=== PATIENT | female | born 1950 | race Caucasian/White ===

== ENCOUNTER 2023-03-29 09:42 | Day surgery (SDC) | payer MEDICARE ==
--- NOTE | 2023-03-29 08:27 | HP ---
DATE OF SURGERY: 03/29/2023 HISTORY OF PRESENT ILLNESS: The patient is a 72-year-old with last colonoscopy 2007 and had polyps. No bloody stools. No change in bowel habits recently. No new pain. Family history of brother with colon cancer. PAST MEDICAL HISTORY: Glaucoma. Osteoporosis. Vitamin D deficient. Arthritis. She had some rhinitis in the past. PAST SURGICAL HISTORY: Tubal. Arthroplasty bilaterally in the past. Colonoscopy. MEDICATIONS: Vitamin D3, biotin, Latanoprost eye drops, multivitamins, timolol eye drops, Zyrtec. ALLERGIES: NKDA. FAMILY HISTORY: Diabetes, hypertension, glaucoma, lung cancer, colon cancer. SOCIAL HISTORY: Former smoker. Occasional alcohol use. REVIEW OF SYSTEMS: Twelve systems reviewed. No chest pain or palpitations. Other systems negative or noncontributory as above and per preadmission questionnaire. PHYSICAL EXAMINATION: Height 5'4". BMI 25.4. GENERAL: No acute distress. HEENT: Sclerae nonicteric. EOMI. Oral mucous membranes moist. NECK: No JVD. CHEST: Equal excursion, nonlabored breathing. CVS: Regular rate and rhythm. ABDOMEN: Soft. EXTREMITIES: No significant edema. NEURO: Alert, oriented, moving extremities symmetrically. RECTAL: Deferred timed to endoscopy exam. PSYCH: Appropriate mood and affect. SKIN: Dry. IMPRESSION: History of polyps, family history of colon cancer. She is in need of follow up screening colonoscopy. She was shown the risk sheet, explained the procedure in detail including but not limited to risk of bleeding or infection, risk of bowel injury or perforation, risk of missed or nondiagnosis or incomplete exam possibly requiring barium enema, other studies or procedures or referrals, risk of anesthesia or sedation, risk of bowel prep but not limited to. Will proceed with colonoscopy under MAC anesthesia as an outpatient. Otherwise continue medication for her glaucoma, vitamin D deficiency and arthritis.
[2023-03-29 10:23] VITALS: RESP 18; TEMP 98.2
[2023-03-29] MEDS ORDERED: Lactated Ringers 1,000 ML IV SCH (10:30)
[2023-03-29] MEDS ORDERED: Xylocaine-Mpf 2% 5 Ml Vial ONE (11:44)
[2023-03-29] MEDS ORDERED: Versed 2 MG/2 ML Injection ONE (11:44)
[2023-03-29] MEDS ORDERED: DIPRIVAN 200 MG/20 ML IV ONE (11:44)
[2023-03-29 13:04] VITALS: BP 108/75; PULSE 61; O2SAT 99
--- NOTE | 2023-03-30 09:42 | OP ---
SURGERY DATE/TIME: 03/29/2023 1144 PREOPERATIVE DIAGNOSIS: History of polyps, family history of colon cancer. POSTOPERATIVE DIAGNOSES: 1) Sigmoid colon polyp. 2) Diverticulosis. 3) Fair bowel prep. 4) ASA Class II. 5) Withdrawal time approximately nine minutes. PROCEDURES: Colonoscopy to cecum with hot biopsy sigmoid colon piecemeal polypectomy. SURGEON: Dr. Vj Schafer. ANESTHESIA: MAC. ESTIMATED BLOOD LOSS: Minimal. INDICATIONS: As noted above. Risks and benefits explained in detail but not limited to and consent obtained. DESCRIPTION OF PROCEDURE AND FINDINGS: The patient is taken to the endoscopy room. MAC anesthesia induced. After official time out and no disagreement with planned procedure, digital rectal exam did not reveal any rectal masses. Video colonoscope inserted and passed up through the tortuous sigmoid, descending, transverse and ascending colon around to the cecum. Appendiceal orifice and ileocecal valve well visualized and photo documented. Prep overall is fair with a little bit of liquidy semisolid stool throughout the colon limiting the exam for very tiny lesions just slightly otherwise this is suctioned irrigated out as clear as possible. ASA Class II. The scope is carefully withdrawn over the next nine minutes. No signs of any large polyps, masses or any other obstructing lesion. She had some diverticulosis in the left colon. The sigmoid colon polyp was about 2.5 mm removed with hot biopsy piecemeal polypectomy. Good hemostasis was noted. It appeared to be removed completely. The scope continued to be pulled back through the rectum. She had some small internal hemorrhoids. No signs of any large polyps, masses or obstructing lesions. The scope is withdrawn. The patient tolerated the procedure well. Will discuss the findings with the family in the waiting area.
== END 2023-03-29 12:54 | disposition home or self-care (01) ==
LOC: SDC 09:42
PROVIDERS: ATTEND Surgery
DX: Z09 Encounter for follow-up examination after completed treatment for conditions other than malignant neoplasm (principal); Z86.010 Personal history of colon polyps; Z80.0 Family history of malignant neoplasm of digestive organs; K57.30 Diverticulosis of large intestine without perforation or abscess without bleeding; D12.5 Benign neoplasm of sigmoid colon
CPT/HCPCS: 88305; 99100; J2250; J2704